=== PATIENT | male | born 1945 | race Caucasian/White ===

== ENCOUNTER → 2025-05-17 08:12 | Outpatient (REF) | payer MEDICARE, OTHER, SELFPAY | LOC: EMG 08:12 | PROVIDERS: ATTENDING PHYSICIAN Neurological Surgery; FAMILY PHYSICIAN Family Medicine | DX: R20.0 Anesthesia of skin (principal); M54.16 Radiculopathy, lumbar region | CPT/HCPCS: 95886; 95910 ==